=== PATIENT | female | born 1950 | race American Indian/Alaskan Native ===

== ENCOUNTER 2017-05-16 11:28 | Day surgery (SDC) | payer OTHER ==
[~2017-05-16 11:28] MED LIST: GONAK ONE; TETRACAINE 0.5% ONE; TOBRADEX ONE
[2017-05-16] MEDS ORDERED: IOPIDINE OD ONE (11:42)
[2017-05-16] MEDS ORDERED: TETRACAINE 0.5% OD ONE (12:53)
[2017-05-16] MEDS ORDERED: GONAK OD ONE (12:53)
[2017-05-16] MEDS ORDERED: IOPIDINE ONE (14:22)
[2017-05-16] MEDS ORDERED: MYDRIACYL ONE (14:30)
[2017-05-16 15:02] VITALS: BP 171/68
== END 2017-05-16 11:29 | disposition home or self-care (01) ==
LOC: OR 11:28
PROVIDERS: ATTEND Specialist
DX: H40.1110 Primary open-angle glaucoma, right eye, stage unspecified (principal)

== ENCOUNTER 2017-05-23 11:20 | Day surgery (SDC) | payer OTHER ==
[~2017-05-23 11:20] MED LIST changes: -GONAK ONE; +IOPIDINE ONE; +MYDRIACYL ONE; +NEOFRIN ONE; -TETRACAINE 0.5% ONE; -TOBRADEX ONE
[2017-05-23] MEDS ORDERED: IOPIDINE OS ONE (11:49)
[2017-05-23] MEDS ORDERED: ISOPTO CARPINE ONE (11:54)
[2017-05-23] MEDS ORDERED: TETRACAINE 0.5% OS ONE (12:33)
[2017-05-23] MEDS ORDERED: GONAK OS ONE (12:33)
[2017-05-23 13:56] VITALS: BP 146/70
== END 2017-05-23 11:21 | disposition home or self-care (01) ==
LOC: OR 11:20
PROVIDERS: ATTEND Specialist
DX: H40.10X3 Unspecified open-angle glaucoma, severe stage (principal); I10 Essential (primary) hypertension; E78.00 Pure hypercholesterolemia, unspecified; Z90.710 Acquired absence of both cervix and uterus

== ENCOUNTER 2018-02-28 08:31 | Outpatient (CLI) | payer OTHER ==
--- NOTE | 2018-02-28 11:20 | Mammography Report ---
BILATERAL DIGITAL SCREENING MAMMOGRAM with CAD: 02/28/18 08:31:00 CLINICAL: Routine screening. COMPARISON:02/23/16 FINDINGS: The breasts are heterogeneously dense, which may obscure small masses. No mass, architectural distortion or suspicious calcifications. IMPRESSION: No mammographic evidence of malignancy. BI-RADS CATEGORY: 1 - - Negative RECOMMENDATION: Routine mammographic screening in one year. COMMENT: Patient follow-up letters are generated by our [employer] application.
== END 2018-02-28 08:32 | disposition home or self-care (01) ==
LOC: MAMMO 08:31
PROVIDERS: ATTEND Obstetrics & Gynecology
DX: Z12.31 Encounter for screening mammogram for malignant neoplasm of breast (principal); I10 Essential (primary) hypertension; E78.00 Pure hypercholesterolemia, unspecified; Z90.710 Acquired absence of both cervix and uterus
CPT/HCPCS: 77067